=== PATIENT | male | born 1990 | race Caucasian/White ===

== ENCOUNTER 2019-06-19 20:54 | Emergency (ER) | payer OTHER ==
[~2019-06-19] VITALS: Ht 188 cm; Wt 73.5 kg
[2019-06-19] MEDS ORDERED: haloperidol lactate 5mg/ml inj IM ONE (21:20)
[2019-06-19] MEDS ORDERED: LORazepam 2 mg/ml vial IM ONE (21:20)
--- NOTE | 2019-06-19 21:43 | NUR ---
He is thirsty. He drank 500mls of ice water.
[2019-06-19] MEDS ORDERED: normal saline 1000ml 1,000 ML IVB ONE (21:53)
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
--- NOTE | 2019-06-19 22:20 | NUR ---
PT IS SLEEPING SP02 MAINTAINING ABOVE 92%, RR 16.
[2019-06-19 22:37] LABS: BASOPHILS # (AUTO) 0.1 X10'3 (0-0.2); BASOPHILS % (AUTO) 0.7 % (0-1); EOSINOPHILS # (AUTO) 0.2 X10'3 (0-0.9); HEMATOCRIT 42.2 % (42.0-52.0); HEMOGLOBIN 13.6 g/dl (14.0-17.9); LYMPHOCYTES % (AUTO) 41.5 % (21-51); MEAN CORPUSCULAR HEMOGLOBIN 32.4 PG (27.0-31.0); MEAN CORPUSCULAR HGB CONC 32.3 g/dL (33.0-36.5); MEAN CORPUSCULAR VOLUME 100.2 FL (78-98); MONOCYTES # (AUTO) 1.2 X10'3 (0-0.9); MONOCYTES % (AUTO) 10.3 % (2-12); NEUTROPHILS # (AUTO) 5.4 X10'3 (1.8-7.7); NEUTROPHILS % (AUTO) 45.5 % (42-75); PLATELET COUNT 337 X10'3 (140-440); RED BLOOD COUNT 4.21 X10'6 (4.70-6.10); RED CELL DISTRIBUTION WIDTH 14.2 % (11.5-14.5)
--- NOTE | 2019-06-19 22:47 | NUR ---
NIKHIL SEAMAN STATES WE DO NOT NEED URINE SAMPLE AT THIS TIME AND CAN WAIT UNTIL HE IS AWAKE.
[2019-06-19 22:51] LABS: ALANINE AMINOTRANSFERASE 44 U/L (12-78); ALBUMIN/GLOBULIN RATIO 0.9 (1.1-1.5); ALKALINE PHOSPHATASE 81 IU/L (46-116); ANION GAP 26 (8-16); ASPARTATE AMINO TRANSFERASE 34 U/L (10-37); BILIRUBIN,TOTAL 0.4 MG/DL (0.1-1.0); BLOOD UREA NITROGEN 18 MG/DL (7-18); BUN/CREATININE RATIO 10.7 (5.4-32.0); CALCIUM 9.5 MG/DL (8.5-10.1); CHLORIDE 99 MMOL/L (99-107); CREATININE 1.69 MG/DL (0.60-1.10); GLUCOSE 169 MG/DL (70-104); POTASSIUM 3.5 MMOL/L (3.5-5.1); SODIUM 139 MMOL/L (135-145); TOTAL PROTEIN 8.4 G/DL (6.4-8.2); eGFR 48 ML/MIN
[2019-06-19 22:56] LABS: ETHANOL < 0.010 GM/DL (0.0-0.010)
[2019-06-19 22:58] LABS: TOTAL CARBON DIOXIDE 13.8 MMOL/L (24-32)
[2019-06-19] MEDS ORDERED: normal saline 1000ML IV soln IV ONE (23:05)
[2019-06-19 23:23] LABS: CREATINE KINASE 265 U/L (39-308)
--- NOTE | 2019-06-19 23:31 | NUR ---
PT GIVEN A WARM BLANKET AND WATER. PT IS CALM/COOPERATIVE AND FOLLOWING COMMANDS.
--- NOTE | 2019-06-20 00:02 | NUR ---
moved pt to room 3, he remained asleep
--- NOTE | 2019-06-20 00:05 | NUR ---
patient moved to bed 3, patient sleeping and in no apparent distress.
--- NOTE | 2019-06-20 00:53 | NUR ---
Patient is sleeping comfortably on gurney, restraints have been removed. I will continue to monitor.
--- NOTE | 2019-06-20 02:17 | NUR ---
Patient still sleeping comfortably on gurney, wakes occasionaly and repositions self
--- NOTE | 2019-06-20 04:09 | NUR ---
Patient laying on right side sleeping comfortably, rise and fall of chest witnessed and respirations are even and regular.
--- NOTE | 2019-06-20 05:07 | NUR ---
Patient still resting comfortably on gurney.
--- NOTE | 2019-06-20 06:03 | NUR ---
Patient easily to wake, followed commands. I was able to get oral Temp.
--- NOTE | 2019-06-20 09:33 | NUR ---
PATIENT IS SLEEPING ON GURNEY. AROUSES EASILY TO VERBAL STIMULI. PATIENT INFORMED SEVERAL TIMES OVER THE PAST 2 HOURS THAT URINE SPECIMEN WAS NEEDED. PATIENT STATES HE IS UNABLE TO VOID AT THIS TIME.
[2019-06-20 09:35] VITALS: BP 156/89
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
[2019-06-20 10:40] LABS: URINE AMPHETAMINE SCREEN POSITIVE (Neg); URINE BARBITUATE SCREEN NEGATIVE (Neg); URINE BENZODIAZEPINES SCREEN NEGATIVE (Neg); URINE CANNABINOID SCREEN POSITIVE (Neg); URINE COCAINE SCREEN NEGATIVE (Neg); URINE METHADONE SCREEN NEGATIVE (Neg); URINE OPIATE SCREEN NEGATIVE (Neg); URINE PHENCYCLIDINE SCREEN NEGATIVE (Neg)
== END 2019-06-20 10:41 | disposition home or self-care (01) ==
LOC: ER 20:55
DX: F15.959 Other stimulant use, unspecified with stimulant-induced psychotic disorder, unspecified (principal); F17.210 Nicotine dependence, cigarettes, uncomplicated; F14.90 Cocaine use, unspecified, uncomplicated; F10.99 Alcohol use, unspecified with unspecified alcohol-induced disorder; Y90.0 Blood alcohol level of less than 20 mg/100 ml
CPT/HCPCS: 36415; 80053; 80305; 80320; 82550; 84145; 85025; 87040; 96372; 99284; J1630; J2060; J7030; J7040

== ENCOUNTER 2022-05-16 11:51 | Emergency (ER) | payer MEDICAID ==
[~2022-05-16] VITALS: Ht 188 cm; Wt 81.8 kg
== END 2022-05-16 13:09 | disposition left against medical advice (07) ==
LOC: ER 11:52
DX: F15.10 Other stimulant abuse, uncomplicated (principal); F14.10 Cocaine abuse, uncomplicated
CPT/HCPCS: 93005; 99283

== ENCOUNTER 2022-10-01 05:19 | Emergency (ER) | payer MEDICAID ==
[~2022-10-01] VITALS: Ht 188 cm; Wt 75.9 kg
[2022-10-01] MEDS ORDERED: acetaminophen 325mg tablet PO ONE (06:55)
[2022-10-01 07:15] VITALS: BP 120/76
== END 2022-10-01 07:17 | disposition home or self-care (01) ==
LOC: ER 05:19
DX: S93.491A Sprain of other ligament of right ankle, initial encounter (principal); S93.601A Unspecified sprain of right foot, initial encounter; F15.90 Other stimulant use, unspecified, uncomplicated; F11.90 Opioid use, unspecified, uncomplicated; Z72.89 Other problems related to lifestyle; Z59.00 Homelessness unspecified; Z79.899 Other long term (current) drug therapy; X50.1XXA Overexertion from prolonged static or awkward postures, initial encounter; Y93.89 Activity, other specified; Y92.89 Other specified places as the place of occurrence of the external cause; Y99.8 Other external cause status
CPT/HCPCS: 73610; 99284; A6449